=== PATIENT | female | born 1995 | race Caucasian/White ===

== ENCOUNTER 2017-03-13 23:42 | Emergency (ER) | payer SELFPAY ==
[~2017-03-13] VITALS: Ht 165.1 cm; Wt 59.0 kg
[2017-03-13 23:47] VITALS: BP 139/85
== END 2017-03-14 03:43 | disposition left against medical advice (07) ==
LOC: ER 03-14 00:03
DX: S09.90XA Unspecified injury of head, initial encounter (principal); Z53.21 Procedure and treatment not carried out due to patient leaving prior to being seen by health care provider; X58.XXXA Exposure to other specified factors, initial encounter; Y93.89 Activity, other specified; Y92.89 Other specified places as the place of occurrence of the external cause; Y99.8 Other external cause status